=== PATIENT | female | born 2005 | race Caucasian/White ===

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

== ENCOUNTER 2024-10-26 09:48 | Emergency (ER) | payer SELFPAY ==
[2024-10-26 10:33] LABS: Pregnancy Test - Urine (BHCG) Negative (Negative); Pregu Control Background? CLEAR/WHITE (CLR/WHITE); Pregu Control Bar Appear? YES (CONTROL BAR)
[2024-10-26] MEDS ORDERED: Ondansetron PF 4 MG/2 ML Vial ONE (10:42)
[2024-10-26 10:52] LABS: #Basophils 0.1 thou/uL (0.0-0.2); #Eosinophils 0.0 thou/uL (0.0-0.7); #Lymphocytes 1.8 thou/uL (1.20-3.40); #Monocytes 0.6 thou/uL (0.11-0.59); #Neutrophils 4.3 thou/uL (1.40-6.50); %Basophils 1.1 % (0.0-1.0); %Eosinophils 0.6 % (0.0-10.0); %Lymphocytes 26.1 % (21.0-51.0); %Monocytes 8.6 % (0.0-10.0); %Neutrophils 63.6 % (42.0-75.0); Hematocrit 43.7 % (36.0-47.0); Hemoglobin 14.4 g/dL (12.0-16.0); Mean Corpuscular Hemoglobin 30.6 pg (27.0-31.0); Mean Corpuscular Volume 92.9 fl (78.0-98.0); Platelet Count 272 10x3/uL (130-400); Red Blood Cell (RBC) Count 4.70 mill/uL (4.20-5.40); White Blood Cell (WBC) Count 6.8 10x3/uL (4.8-10.8)
[2024-10-26 11:05] LABS: ALT (SGPT) 38 U/L (Less than 34); AST (SGOT) 23 U/L (11-34); Albumin 4.5 g/dL (3.1-4.5); Alkaline Phosphatase 41 U/L (40-110); Anion Gap 18 mmol/L (10-20); BUN (Urea Nitrogen) 8 mg/dL (7.0-18.7); Bilirubin, Total 0.7 mg/dL (0.3-1.2); Calc. Creatinine Clearance 0 mL/min (70-130); Calcium 9.0 mg/dL (7.8-10.44); Carbon Dioxide 20 mmol/L (22-29); Chloride 108 mmol/L (98-107); Globulin 2.6 g/dL (2.4-3.5); Glucose 87 mg/dL (70-105); Lipase 12 U/L (8-78); Potassium 3.6 mmol/L (3.5-5.1); Sodium 142 mmol/L (136-145)
[2024-10-26 11:06] LABS: Troponin I Less than 0.010 ng/mL (< 0.028)
[2024-10-26] MEDS ORDERED: Benzonatate 100 MG CAP ONE (11:24)
[2024-10-26] MEDS ORDERED: Ketorolac Tromethamine 30 MG (1 mL) VIAL ONE (11:24)
== END 2024-10-26 11:52 | disposition home or self-care (01) ==
LOC: MADERS 09:48
DX: J20.9 Acute bronchitis, unspecified (principal); B34.9 Viral infection, unspecified; F17.290 Nicotine dependence, other tobacco product, uncomplicated
CPT/HCPCS: 71046; 80053; 81025; 83690; 84484; 85025; 85379; 87428; 93005; 96361; 96374; 96375; J1885; J2405; J2919; J7120

== ENCOUNTER 2024-11-23 08:31 | Emergency (ER) | payer SELFPAY ==
[2024-11-23 08:53] LABS: Glucose, Urine (Dipstick) Negative (Negative); Leukocyte Negative (Negative); Pregnancy Test - Urine (BHCG) Negative (Negative); Pregu Control Background? CLEAR/WHITE (CLR/WHITE); Pregu Control Bar Appear? YES (CONTROL BAR); Protein, Urine (Dipstick) Negative (Neg-Trace); Specific Gravity, Urine 1.020 (1.005-1.030)
[2024-11-23 08:56] LABS: Bacteria/HPF Rare-Few HPF (None Seen); CAUTI Indications for Culture Dysuria,urgency,freq; RBC/HPF 0-3 HPF (0-3); WBC/HPF 0-3 HPF (0-3)
[2024-11-23 08:57] LABS: Urine Culture Reflex No No
[2024-11-23] MEDS ORDERED: Mag-Al 1200 mg/1200 mg/30 ML UDCUP ONE (09:10)
[2024-11-23] MEDS ORDERED: Lidocaine Viscous Sol 2% 15 ml UD Cup ONE (09:10)
[2024-11-23 09:31] LABS: #Basophils 0.1 thou/uL (0.0-0.2); #Eosinophils 0.1 thou/uL (0.0-0.7); #Lymphocytes 1.8 thou/uL (1.20-3.40); #Monocytes 0.5 thou/uL (0.11-0.59); #Neutrophils 4.1 thou/uL (1.40-6.50); %Basophils 1.2 % (0.0-1.0); %Eosinophils 2.2 % (0.0-10.0); %Lymphocytes 27.3 % (21.0-51.0); %Monocytes 7.9 % (0.0-10.0); %Neutrophils 61.4 % (42.0-75.0); Hematocrit 42.0 % (36.0-47.0); Hemoglobin 13.6 g/dL (12.0-16.0); Mean Corpuscular Hemoglobin 30.8 pg (27.0-31.0); Mean Corpuscular Volume 94.8 fl (78.0-98.0); Platelet Count 286 10x3/uL (130-400); Red Blood Cell (RBC) Count 4.43 mill/uL (4.20-5.40); White Blood Cell (WBC) Count 6.6 10x3/uL (4.8-10.8)
[2024-11-23 09:44] LABS: ALT (SGPT) 12 U/L (Less than 34); AST (SGOT) 14 U/L (11-34); Albumin 3.8 g/dL (3.1-4.5); Alkaline Phosphatase 45 U/L (40-110); Anion Gap 14 mmol/L (10-20); BUN (Urea Nitrogen) 12 mg/dL (7.0-18.7); Bilirubin, Total 0.3 mg/dL (0.3-1.2); Calc. Creatinine Clearance 0 mL/min (70-130); Calcium 8.2 mg/dL (7.8-10.44); Carbon Dioxide 21 mmol/L (22-29); Chloride 110 mmol/L (98-107); Globulin 2.4 g/dL (2.4-3.5); Glucose 90 mg/dL (70-105); Lipase 19 U/L (8-78); Potassium 4.3 mmol/L (3.5-5.1); Sodium 141 mmol/L (136-145)
== END 2024-11-23 09:57 | disposition home or self-care (01) ==
LOC: MADERS 08:31
DX: R10.84 Generalized abdominal pain (principal); R11.2 Nausea with vomiting, unspecified; F17.290 Nicotine dependence, other tobacco product, uncomplicated
CPT/HCPCS: 80053; 81001; 81025; 83690; 85025; 99284